=== PATIENT | female | born 1995 | race Caucasian/White ===

== ENCOUNTER 2019-03-20 21:15 | Emergency (ER) | payer OTHER ==
[~2019-03-20] VITALS: Ht 149.9 cm; Wt 62.6 kg
[~2019-03-20 21:15] MED LIST: ACETAMINOOPHEN-1 TAB; ROBITUSSIN100 MG/52
== END 2019-03-20 21:57 | disposition home or self-care (01) ==
LOC: ER 21:15
DX: M54.2 Cervicalgia (principal); F06.4 Anxiety disorder due to known physiological condition